=== PATIENT | female | born 1975 | race Caucasian/White ===

== ENCOUNTER 2017-12-30 09:25 | Emergency (ER) | payer OTHER ==
[~2017-12-30] VITALS: Ht 160 cm; Wt 83.9 kg
[2017-12-30 09:50] VITALS: BP 145/94
[2017-12-30] MEDS ORDERED: predniSONE 10 MG TABLET PO ONE (10:15)
[2017-12-30] MEDS ORDERED: IPRATRPIUM/ALBUTEROL 0.5/2.5MG 3 ML NEBU. NEB ONE (10:15)
--- NOTE | 2017-12-30 10:28 | RAD ---
AP and Lateral Views of the Chest 12/30/2017 10:08 AM Indication: COUGH AND CONGESTION X 2 WEEKS WORSE IN THE LAST 2 DAYS Comparison: Chest radiograph August 28, 2012. Findings: There is no focal consolidation or infiltrate identified. The cardiomediastinal silhouette is within normal limits. There is no evidence of pneumothorax or pleural effusion. No acute osseous abnormalities are identified. Impression: No evidence of acute cardiopulmonary process. Electronically signed by: Vinicius Gonsales MD (12/30/2017 10:25 AM) [id number]
[2017-12-30] MEDS ORDERED: PROAIR HFA8.5 GM INH (10:43)
[2017-12-30] MEDS ORDERED: BENZ100C PO (10:43)
[2017-12-30] MEDS ORDERED: PRED50TA PO (10:43)
--- NOTE | 2017-12-30 10:44 | PHYS DOC ---
Adult General Chief Complaint Chief Complaint: Congestion HPI HPI Patient is a 42 year old female who presents with shortness of air, coughing 2 weeks. Patient states she does have a history of asthma has been using her inhaler every 2 hours but does not have a nebulizer at home. Patient states that she did at [facility] office this morning because she was wheezing and they gave her breathing treatment and told her to go to the ER. Patient is satting 91% on room air, 108 heart rate, 145/94 and is afebrile. Review of Systems Review of Systems Constitutional: Denies fever or chills [] Eyes: Denies change in visual acuity, redness, or eye pain [] HENT: Denies nasal congestion or sore throat [] Respiratory: Cough and shortness of breath [] Cardiovascular: No additional information not addressed in HPI [] GI: Denies abdominal pain, nausea, vomiting, bloody stools or diarrhea [] : Denies dysuria or hematuria [] Musculoskeletal: Denies back pain or joint pain [] Integument: Denies rash or skin lesions [] Neurologic: Denies headache, focal weakness or sensory changes [] Endocrine: Denies polyuria or polydipsia [] All other systems were reviewed and found to be within normal limits, except as documented in this note. Current Medications Current Medications Current Medications Medications (Trade) Dose Ordered Sig/Jass Start Time Stop Time Status Last Admin Dose Admin Albuterol/ Ipratropium (Duoneb) 3 ml 1X ONCE 12/30/17 10:15 12/30/17 10:18 DC 12/30/17 10:30 3 ML Prednisone (Prednisone) 50 mg 1X ONCE 12/30/17 10:15 12/30/17 10:18 DC 12/30/17 10:32 50 MG Allergies Allergies Allergies Coded Allergies Type Severity Reaction Last Updated Verified azithromycin Allergy Intermediate swelling, veins burning 12/30/17 Yes Physical Exam Physical Exam Constitutional: Well developed, well nourished, no acute distress, non-toxic appearance. [] HENT: Normocephalic, atraumatic, bilateral external ears normal, oropharynx moist, no oral exudates, nose normal. [] Eyes: PERRLA, EOMI, conjunctiva normal, no discharge. [] Neck: Normal range of motion, no tenderness, supple, no stridor. [] Cardiovascular:Heart rate regular rhythm, no murmur [] Lungs & Thorax: Bilateral breath sounds have inspiratory and expiratory wheezes to auscultation [] Abdomen: Bowel sounds normal, soft, no tenderness, no masses, no pulsatile masses. [] Skin: Warm, dry, no erythema, no rash. [] Back: No tenderness, no CVA tenderness. [] Extremities: No tenderness, no cyanosis, no clubbing, ROM intact, no edema. [] Neurologic: Alert and oriented X 3, normal motor function, normal sensory function, no focal deficits noted. [] Psychologic: Affect normal, judgement normal, mood normal. [] Current Patient Data Vital Signs Vital Signs Date Time Temp Pulse Resp B/P (MAP) Pulse Ox O2 Delivery O2 Flow Rate FiO2 12/30/17 10:30 95 Room Air 12/30/17 09:50 97.9 100 20 145/94 (111) 97.9 EKG EKG [] Radiology/Procedures Radiology/Procedures Chest Impressions: [facility] [address] [place] [address] IMAGING REPORT Signed PATIENT: JUANITA NOBLE ACCOUNT: [id number] : 1975 LOCATION: ER AGE: 42 SEX: F EXAM STATUS: REG ER ORD. PHYSICIAN: COLIN IVEY APRN REASON: cough PROCEDURE: CHEST PA & LATERAL AP and Lateral Views of the Chest 12/30/2017 10:08 AM Indication: COUGH AND CONGESTION X 2 WEEKS WORSE IN THE LAST 2 DAYS Comparison: Chest radiograph August 28, 2012. Findings: There is no focal consolidation or infiltrate identified. The cardiomediastinal silhouette is within normal limits. There is no evidence of pneumothorax or pleural effusion. No acute osseous abnormalities are identified. Impression: No evidence of acute cardiopulmonary process. Electronically signed by: Vinicius Grigsby MD (12/30/2017 10:25 AM) [id number] DICTATED and SIGNED BY: VINICIUS GRIGSBY MD DATE: 12/30/17 1024 Course & Med Decision Making Course & Med Decision Making Patient is a 42 year old female who presents with shortness of air, coughing 2 weeks. Patient states she does have a history of asthma has been using her inhaler every 2 hours but does not have a nebulizer at home. Patient states that she did at [facility] office this morning because she was wheezing and they gave her breathing treatment and told her to go to the ER. Patient is satting 91% on room air, 108 heart rate, 145/94 and is afebrile. Skin is pink warm and dry. Heart rate slightly tachycardia but without murmur. Patient speaks in full sentences. Alert and oriented. All blood flow and is greater than expiratory wheezes. Patient has no extremity swelling. She denies headache or dizziness. Patient denies any chest pain. Patient denies any nausea, vomiting, diarrhea. Patient states she has not been taking anything for her symptoms except try to use her albuterol inhaler every 2 hours. Patient is allergic to Zithromax. Patient takes her inhaler, Zantac, vitamins, and an anxiety medication that she cannot remember the name of. Patient is given a breathing treatment and prednisone in the ED. Chest x-ray shows no acute findings. Patient states that she is feeling better after receiving the breathing treatment and her lungs sounds are clearer upon reassessment. Patient is sent home with a prescription for ProAir, Prednisone and Teslon Perles. Patient is to follow up with her primary care as soon as possible. Staff Physician Addendum: I was working in the ER during the course of this patient's visit. I was available for consultation as needed, but I was not directly involved in the care of this patient. [] Dragon Disclaimer Dragon Disclaimer This electronic medical record was generated, in whole or in part, using a voice recognition dictation system. Departure Departure Impression: Primary Impression: Asthma Disposition: HOME, SELF-CARE Condition: STABLE Referrals: EMMA ROACH MD (PCP) Patient Instructions: Asthma, Adult Additional Instructions: Follow up with primary care physician. Scripts Benzonatate (TESSALON PERLE) 100 Mg Capsule 1 CAP PO TID for 10 Days, #30 CAP Prov: COLIN IVEY APRN 12/30/17 Albuterol Sulfate (PROAIR HFA INHALER) 8.5 Gm Hfa.aer.ad 1 PUFF INH PRN Q6HRS PRN for SHORTNESS OF BREATH, #1 INHALER 0 Refills Prov: COLIN IVEY APRN 12/30/17 Prednisone (PREDNISONE) 50 Mg Tablet 1 TAB PO DAILY, #4 TAB Prov: COLIN IVEY APRN 12/30/17 Problem Qualifiers Primary Impression: Asthma Asthma severity: mild Asthma persistence: intermittent Asthma complication type: uncomplicated Qualified Codes: J45.20 - Mild intermittent asthma, uncomplicated COLIN IVEY APRN Dec 30, 2017 10:44 SHERLYN APODACA MD Dec 30, 2017 17:04
== END 2017-12-30 11:26 | disposition home or self-care (01) ==
LOC: ER 09:25
DX: J45.909 Unspecified asthma, uncomplicated (principal); Z88.1 Allergy status to other antibiotic agents
CPT/HCPCS: 71046; 94010; 94640; 99284; J7512; J7620